=== PATIENT | male | born 1965 | race Caucasian/White ===

== ENCOUNTER 2016-10-18 08:43 | Emergency (ER) | payer SELFPAY ==
[~2016-10-18] VITALS: Ht 182.9 cm; Wt 65.4 kg
[~2016-10-18 08:43] MED LIST: MOTRIN600 MG PO; NOHOMEMEDS; NON-ASPIRIN PA325 MG PO; PEPCID20 MG PO; VALIUM2 MG PO
[2016-10-18 09:24] LABS: EOSINOPHIL (%) 0.7 % (0-5); EOSINOPHIL COUNT 0.1 K/uL (0-0.3); IMMATURE GRANULOCYTE (%) 0.1 % (0.0-0.7); IMMATURE GRANULOCYTE COUNT 0.1 K/uL; LYMPHOCYTE COUNT 2.5 K/uL (1.0-2.8); MCH 32.8 PG (29.0-34.0); MCHC 34.5 G/DL (30.0-36.0); MEAN PLAT.VOLUME 9.8 uM^3 (9.0-12.4); MONOCYTE (%) 7.7 % (3-12); MONOCYTE COUNT 0.7 K/uL (0-0.8); NEUTROPHIL (%) 65.3 % (45-76); NEUTROPHIL COUNT 6.2 K/uL (1.8-6.4); PLATELET COUNT 209 K/uL (156-360); RBC DIS.WIDTH-CV 13.2 % (11.8-14.6); RBC DIS.WIDTH-SD 43.9 % (39-53); RED BLOOD COUNT 4.63 M/uL (4.00-5.50); WHITE BLOOD COUNT 9.6 K/uL (4.1-10.2)
[2016-10-18 09:39] LABS: CHLORIDE 106 mEq/L (99-109); POTASSIUM 4.5 mEq/L (3.7-5.4); SODIUM 140 mEq/L (136-147)
[2016-10-18 09:41] LABS: GLUCOSE 93 mg/dL (70-99)
[2016-10-18 09:42] LABS: ANION GAP 9 MEQ/L (2-14)
[2016-10-18 09:43] LABS: TOTAL BILIRUBIN 0.4 mg/dL (0.0-1.0)
[2016-10-18 09:44] LABS: ALKALINE PHOSPHATASE 48 IU/L (3-129)
[2016-10-18 09:45] LABS: GFR ESTIMATE (CALCULATED) > 59 mL/min/
[2016-10-18 09:46] LABS: UREA NITROGEN (BUN) 13 mg/dL (9-23)
[2016-10-18] MEDS ORDERED: NORCO 5/3251 TABLET PO (09:59)
[2016-10-18] MEDS ORDERED: ERYTHROMYC1 APPLICAT RIGHT EYE (09:59)
[2016-10-18 10:43] VITALS: BP 127/87
== END 2016-10-18 10:44 | disposition home or self-care (01) ==
LOC: EME 08:43
PROVIDERS: Physician Assistant
DX: S05.02XA Injury of conjunctiva and corneal abrasion without foreign body, left eye, initial encounter (principal); X58.XXXA Exposure to other specified factors, initial encounter
CPT/HCPCS: 80053; 81003; 85025; 99281; 99284